=== PATIENT | female | born 1960 | race Caucasian/White ===

== ENCOUNTER → 2022-08-11 14:50 | Outpatient (CLI) | payer OTHER, SELFPAY ==
--- NOTE | 2022-08-11 15:01 | DI.RAD.S_ITS ---
PROCEDURE: XR FOOT RT MIN 3V INDICATIONS: RIGHT FOOT PAIN/FRACTURE TECHNIQUE: 3 views of the foot were acquired. COMPARISON: None. FINDINGS: Bones: No fractures or dislocations. No suspicious bony lesions. Soft tissues: No tibiotalar joint effusion. Achilles tendon appears normal. IMPRESSION: No acute fracture. No osseous lesion. If symptoms and/or clinical suspicion for pathology persist, further assessment with repeat, or advanced imaging (e.g., CT, MRI, or bone scan) may be helpful for further assessment. Dictated by: Matt Mendez M.D. on 08/11/2022 at 15:49 Transcribed by: KANNAN on 08/11/2022 at 15:50 Approved by: Matt Mendez M.D. on 08/11/2022 at 16:42
--- NOTE | 2022-08-11 15:01 | DI.RAD.S_ITS ---
PROCEDURE: XR ANKLE RT MIN 3V INDICATIONS: RIGHT FOOT PAIN/FRACTURE TECHNIQUE: 3 views of the ankle were acquired. COMPARISON: None. FINDINGS: Bones: No fractures or dislocations. Ankle mortise is normally aligned. No suspicious bony lesions. Calcaneal spurring. Soft tissues: No tibiotalar joint effusion. Achilles tendon appears normal. IMPRESSION: No acute fracture. No osseous lesion. If symptoms and/or clinical suspicion for pathology persist, further assessment with repeat, or advanced imaging (e.g., CT, MRI, or bone scan) may be helpful for further assessment. Dictated by: Matt Mendez M.D. on 08/11/2022 at 15:49 Approved by: Matt Mendez M.D. on 08/11/2022 at 15:49
== END ==
PROVIDERS: PCP Physician Assistant; Referring Provider Registered Nurse; Visit Provider Registered Nurse
DX: M79.671 Pain in right foot (principal)
CPT/HCPCS: 73610; 73630